=== PATIENT | female | born 1950 | race Hispanic/Latino ===

== ENCOUNTER 2018-06-27 08:43 | Day surgery (SDC) | payer MEDICARE, OTHER ==
[2018-06-27 09:47] LABS: Basophils % (Auto) 0.7 % (0.0-1.8); Eosinophils # (Auto) 0.2 K/mm3 (0.0-0.4); Eosinophils % (Auto) 3.8 % (0.0-4.3); Hematocrit 32.2 % (30.3-42.9); Hemoglobin 11.2 gm/dl (10.1-14.3); Lymphocytes % (Auto) 22.2 % (13.4-35.0); Mean Corpuscular HGB Conc 35 % (30-34); Mean Corpuscular Hemoglobin 29 pg (28-32); Mean Corpuscular Volume 84 fl (79-97); Monocytes # (Auto) 0.4 K/mm3 (0.0-0.8); Platelet Count 259 K/mm3 (140-440); Red Blood Count 3.84 M/mm3 (3.65-5.03); Red Cell Distribution Width 13.8 % (13.2-15.2)
[2018-06-27 09:57] LABS: INR 0.89 (0.87-1.13)
[2018-06-27] MEDS ORDERED: NACL 0.9% 500 ML 500 ML IV SCH (10:00)
[2018-06-27 10:04] LABS: BUN/Creatinine Ratio 22; Blood Urea Nitrogen 20 mg/dL (7-17); Calcium 9.5 mg/dL (8.4-10.2); Hemolysis Index 30
[2018-06-27] MEDS ORDERED: HEPARIN/NS 5000 UNIT/500ML(CATH LAB) 1,000 ML IR ONE (11:00)
[2018-06-27] MEDS ORDERED: HEPARIN 10,000 UNITS/10 ML ONE (11:00)
[2018-06-27] MEDS ORDERED: CALAN ONE (11:01)
[2018-06-27] MEDS ORDERED: VERSED ONE (11:01)
[2018-06-27] MEDS ORDERED: SUBLIMAZE ONE (11:01)
[2018-06-27] MEDS ORDERED: NITROGLYCERIN SYRINGE 3 ML ONE (11:05)
[2018-06-27] MEDS: XYLOCAINE 2% INFILTRATI ONE ×2 (11:26→11:34)
--- NOTE | 2018-06-27 13:36 | Cardiac Catherization Report ---
CARDIAC CATHETERIZATION PROCEDURE INDICATION FOR PROCEDURE: The patient is a pleasant 67-year-old female with history of diabetes, family history of coronary artery disease, presents here with dyspnea on exertion, markedly abnormal stress test with anterior and anteroapical ischemia, referred for left heart catheterization. Risks, benefits, and potential alternatives were explained in length prior to obtaining informed consent, on aspirin, beta blockade, and statin therapy. PROCEDURE IN DETAIL: The patient was brought to the catheterization lab in a postabsorptive state, prepped and draped in a sterile fashion. Jeffrey's test in right hand was normal. A 2 mL of 2% lidocaine was used to anesthetize the right wrist. A standard 6-Sammarinese hydrophilic sheath was used to cannulate the right radial artery via modified Seldinger technique; however, the right brachial artery appears to be rather small and did spasm were unable to proceed with radial approach, proceeded with a groin approach, 8 mL of 2% lidocaine was used to anesthetize the right groin. A standard 5-Sammarinese sheath was used to cannulate the right common femoral artery via modified Seldinger technique. All exchanges were performed to exchange a J-tipped guidewire. JL3.5 catheter was used to engage the left main. No dampening or ventricularization. Cineangiography was performed in all projections. JR4 catheter was used to cross the aortic valve under fluoroscopic guidance. Left ventriculography was performed in 30 DUFF[place] and [place] projections via hand injections, catheter flushed, manual pullback performed with continuous pressure monitoring. Catheter was used to engage the right coronary. No dampening or ventricularization. Angiography was performed in all projections. Next, catheter was removed from the body of wire, both sheaths removed. Manual pressure was used to achieve hemostasis. No complications. DATA: Aortic pressure is 140/70, LV pressure is 140, LVEDP of 18 mmHg. Left ventriculography reveals normal systolic performance with estimated ejection fraction of 55-60%, no evidence of aortic stenosis or wall motion abnormalities. CORONARY ANATOMY: This is a right dominant system. Right coronary is a moderate sized vessel, courses AV groove, distally bifurcates in the posterior descending and posterolateral branches. No discrete stenosis identified. There is a 20% proximal right coronary artery stenosis, but nonobstructive. Left main is short, no significant disease, bifurcates left anterior descending and left circumflex. Left circumflex is a moderate sized vessel, courses AV groove ____ OM trunk, no significant disease. LAD has a chronic total occlusion proximally with left to left and extensive right to left collaterals. The target on delayed imaging appears to be good for bypass. This is a long complex lesion. I directly supervised the administration of moderate sedation with Versed and fentanyl from 11:22-11:55 a.m. CONCLUSIONS: 1. Severe single vessel coronary artery disease with a long complex chronic total occlusion of the proximal/mid LAD with extensive left to left and right to left collaterals. 2. Nonobstructive disease in left circumflex, left main, and right coronary. 3. Preserved left ventricular systolic performance, estimated ejection fraction of 55-60%. 4. No evidence of aortic stenosis. 5. Normal LVEDP. At this point, given symptom complex, catheterization findings, I believe the patient should undergo revascularization. Options discussed. The patient is clinically stable, chest pain free. We transferred him in stable condition to [facility] under the care of Dr. Calvin Zazueta for consideration of robotic NG to LAD. Results of the procedure explained to the patient and family. All questions and concerns were addressed. JOB# [id number] SBM/[id number]
[2018-06-27 18:06] VITALS: BP 159/84
== END 2018-06-27 18:00 | disposition critical access hospital (66) ==
LOC: CATHLABREC 08:43
PROVIDERS: ATTEND Internal Medicine
DX: I25.10 Atherosclerotic heart disease of native coronary artery without angina pectoris (principal); E11.9 Type 2 diabetes mellitus without complications; E78.00 Pure hypercholesterolemia, unspecified; I10 Essential (primary) hypertension; Z79.84 Long term (current) use of oral hypoglycemic drugs; Z79.899 Other long term (current) drug therapy; Z98.49 Cataract extraction status, unspecified eye; Z82.49 Family history of ischemic heart disease and other diseases of the circulatory system; Z79.01 Long term (current) use of anticoagulants
CPT/HCPCS: 36415; 80048; 82962; 85025; 85610; 85730; 93005; 93010; 93458; 99156; 99157; C1894; J1644; J2250; J3010; J7040; Q9967